=== PATIENT | male | born 1950 | race Caucasian/White ===

== ENCOUNTER → 2019-02-03 | Outpatient (CLI) | payer MEDICARE ==
--- NOTE | 2019-02-03 09:58 | PCVCIMAG ---
APPROVED REPORT Study performed: 02/03/2019 09:32:52 EXAM: Comprehensive 2D, Doppler, and color-flow Echocardiogram Patient Location: Echo lab Room #: 3Status: routine BSA: 2.25 HR: 58 bpmBP: 118/64 mmHg Rhythm: NSR Other Information Study Quality: Adequate Indications Dyspnea Elevated Liver Enzymes 2D Dimensions IVSd: 10.26 (7-11mm)LVOT Diam: 21.00 (18-24mm) LVDd: 45.38 mm PWd: 10.31 (7-11mm)Ascending Ao: 29.91 (22-36mm) LVDs: 31.27 (25-40mm) Left Atrium: 38.15 (27-40mm) Aortic Root: 32.98 mm LV Single Plane 4CH: 60.18 % LV Single Plane 2CH: 59.40 % Biplane EF: 58.0 % Volumes Left Atrial Volume (Systole) Single Plane 4CH: 66.58 mLSingle Plane 2CH: 64.29 mL LA ESV Index: 30.00 mL/m2 Aortic Valve LVOT Max P.25 mmHg LVOT Max V: 1.03 m/s Mitral Valve E/A Ratio: 1.2 MV Decel. Time: 221.70 ms MV E Max Tanvir.: 0.89 m/s MV A Tanvir.: 0.72 m/s IVRT: 103.81 ms TDI E/Lateral E': 11.13E/Medial E': 14.83 Medial E' Tanvir.: 0.06 m/s Lateral E' Tanvir.: 0.08 m/s Pulmonary Valve PV Peak Tanvir.: 1.12 m/sPV Peak Gr.: 4.98 mmHg Pulmonary Vein P Vein S: 0.43 m/sP Vein A: 0.25 m/s P Vein D: 0.35 m/sP Vein A Dur.: 103.8 msec P Vein S/D Ratio: 1.23 Tricuspid Valve RAP Estimate: 7.00 mmHg Left Ventricle The left ventricle is normal size. There is normal LV segmental wall motion. There is normal left ventricular wall thickness. Left ventricular systolic function is normal. The left ventricular ejection fraction is within the normal range. LVEF is 60%. Moderate diastolic dysfunction is present (pseudonormal filling). Right Ventricle The right ventricle is normal size. The right ventricular systolic function is normal. Atria The left atrium size is normal. The right atrium size is normal. Aortic Valve The aortic valve is normal in structure. No aortic regurgitation is present. There is no aortic valvular stenosis. Mitral Valve The mitral valve is normal in structure. Trace mitral regurgitation. No evidence of mitral valve stenosis. Tricuspid Valve The tricuspid valve is normal in structure. Trace tricuspid regurgitation. Unable to assess PA pressure. Pulmonic Valve The pulmonary valve is normal in structure. There is no pulmonic valvular regurgitation. Great Vessels The aortic root is normal in size. The ascending aorta is normal in size. IVC is normal in size and collapses >50% with inspiration. Pericardium There is no pericardial effusion. <Conclusion> The left ventricle is normal size. LVEF is 60%. The aortic valve is normal in structure. The mitral valve is normal in structure. Trace mitral regurgitation. The tricuspid valve is normal in structure. Trace tricuspid regurgitation. Unable to assess PA pressure. The pulmonary valve is normal in structure. There is no pericardial effusion.
--- NOTE | 2019-02-03 11:21 | PCVCIMAG ---
EXAM: ABDOMINAL ULTRASOUND COMPLETE INDICATION: Abdominal pain FINDINGS: Gallbladder: Previous cholecystectomy. Liver: Normal in size measuring 17.7 cm in length. No focal masses. Diffuse increased echogenicity consistent with diffuse fatty infiltration. Bile ducts: No intra or extra hepatic bile duct dilatation. The common bile duct measures 5.2 mm. Pancreas: Unremarkable where seen. Spleen: Normal in size measuring 12.9 cm in greatest dimension. No focal masses. Right kidney: No hydronephrosis. Length measures 14.0 cm. 6.7 x 6.9 x 7.3 cm benign cyst upper pole. Left kidney: No hydronephrosis. Length measures 12.6 cm. Inferior vena cava: Normal in size where seen. Aorta: Normal in caliber where seen. IMPRESSION: Surgical absence of the gallbladder. Presumed diffuse fatty infiltration of the liver. 7.3 cm benign cyst upper pole right kidney. No acute process seen in the abdomen. LOC:[id number]
== END | disposition home or self-care (01) ==
LOC: PCVCIMAG 07:46
PROVIDERS: ATTEND Internal Medicine
DX: R74.8 Abnormal levels of other serum enzymes (principal); R06.09 Other forms of dyspnea; R07.9 Chest pain, unspecified; R53.83 Other fatigue; Z87.891 Personal history of nicotine dependence; Z90.49 Acquired absence of other specified parts of digestive tract
CPT/HCPCS: 76700; 93306